=== PATIENT | female | born 1995 | race Caucasian/White ===

== ENCOUNTER 2020-09-21 13:07 | Emergency (ER) | payer SELFPAY ==
[2020-09-21 13:42] VITALS: BP 113/75; PULSE 83; RESP 18; TEMP 36.9; O2SAT 98; BMI 25.5
[2020-09-21 14:58] VITALS: BP 108/61; PULSE 81; RESP 15; O2SAT 99
--- NOTE | 2020-09-21 15:00 | USR_ITS ---
PROCEDURE INFORMATION: Exam: US Abdomen Complete Exam date and time: 09/21/2020 3:00 PM Age: 25 years old Clinical indication: Other: Abdominal distension, history of hep c; Additional info: Abdominal distension, h/o hep c, order clarified with Dr rebolledo TECHNIQUE: Imaging protocol: Real-time ultrasound of the abdomen with image documentation. COMPARISON: No relevant prior studies available. FINDINGS: Liver: No liver mass. No liver enlargement. Unremarkable parenchyma echotexture. Gallbladder: Contracted gallbladder. No focal gallstones. Common bile duct: Common bile duct 5 mm diameter. Negative for intrahepatic biliary dilation. Pancreas: Normal pancreas. Right kidney: Normal. No mass. No hydronephrosis. Left kidney: Normal. No mass. No hydronephrosis. Spleen: Negative for splenomegaly. Aorta: Normal diameter of abdominal aorta. Inferior vena cava: IVC is patent with normal diameter. Intraperitoneal space: No abdominal fluid collection. US/US abdomen complete* [id number] IMPRESSION: No acute abdominal findings.
[2020-09-21 15:46] LABS: Basophils % 0.4 %; Eosinophils # 0.2 10^3/uL (0.0-0.8); Eosinophils % 4.4 %; Hematocrit 38.7 % (37.0-47.0); Hemoglobin 12.9 g/dL (11.5-15.3); Lymphocytes # 1.7 10^3/uL (0.8-4.8); Lymphocytes % 34.6 %; Mean Corpuscular HGB Conc 33.3 g/dL (30.0-36.0); Mean Corpuscular Hemoglobin 31.5 pg (28.0-34.0); Mean Corpuscular Volume 94.4 fL (81-99); Mean Platelet Volume 9.9 fL (7.4-10.4); Monocytes # 0.5 10^3/uL (0.2-0.9); Monocytes % 9.1 %; Neutrophils # 2.55 10^3/uL (1.8-7.7); Neutrophils % 51.3 %; Nucleated Red Blood Cells % 0 %; Platelet Count 234 10^3/cmm (130-400)
--- NOTE | 2020-09-21 15:49 | ED_ITS ---
HPI - Abdominal Pain General: Chief Complaint: Abdominal Pain Stated Complaint: HEP C COMPLICATIONS Time Seen by Provider: 09/21/20 14:35 Source: patient Mode of arrival: ambulatory Limitations: no limitations History of Present Illness: HPI narrative: Patient is a 25-year-old female with a history of hep C who is yet to be treated for this as she is 3 out of 6 months sober. She is required to be 6-month sober before she gets treatment. She states over the last 2 weeks she has noticed that she has gained about 20 pounds, her abdomen is distended and she has bilateral pedal edema. Her aunt is suggested that someone they know had similar symptoms when he was going into liver failure. The patient is therefore here to be evaluated for this. MD elicited complaint: abdominal pain (more of a discomfort than pain) Onset (ago): week(s) (2) Pain Consistency: constant Location: Diffuse Severity: mild Quality: dull Radiation: none Migration to: no migration Exacerbating factors: nothing Relieving factors: nothing Associated Symptoms: Denies anorexia, belching, bloating, change in bowel habits, change in stool character, chills, coffee ground emesis, constipation, GI cramping, diarrhea, dyspepsia, dysuria, excessive flatus, fever(s), heart burn, hematochezia, hematuria, hematemesis, fecal incontinence, loose stools, melena, nausea, poor appetite, syncope and vomiting Review of Systems General: Reports: 10 or more systems reviewed and unremarkable except in HPI and below Const: Denies: fever(s) or chills Card: Denies: syncope GI: Denies: nausea, vomiting, hematemesis, coffee ground emesis, heartburn, diarrhea, constipation, bloating, GI cramping, belching, excessive flatus, fecal incontinence, change in bowel habits, change in stool character, hematochezia or melena : Denies: dysuria or hematuria Physical Exam Const: COMMON NORMALS: no acute distress, average body habitus, patient oriented x3, no limitations, healthy appearing, alert and well nourished HENMT: COMMON NORMALS: normocephalic, atraumatic and moist oral mucous membranes HEAD & SCALP: normocephalic and atraumatic Neck/C-Spine: COMMON NORMALS: no meningeal signs and no JVD Resp: COMMON NORMALS: normal respiratory effort, No retractions, No use of accessory muscles, clear to auscultation bilaterally and percussion normal AUSCULTATION: clear to auscultation bilaterally PERCUSSION: percussion normal Cardio: COMMON NORMALS: no JVD, regular rate, regular rhythm, S1 normal heart sound present, S2 normal heart sound present, No gallops present (Cardio), No clicks present (Cardio), No murmurs present (Cardio), No rub (Cardio) and Peripheral pulses 2+ throughout RATE: regular rate RHYTHM: regular rhythm HEART SOUNDS: S1 normal heart sound present and S2 normal heart sound present PERIPHERAL PULSES: Peripheral pulses 2+ throughout GI: COMMON NORMALS: Soft to palpation, non-tender, No hepatosplenomegaly present, no masses and no bruits INSPECTION: Yes abdominal distension and No Fluid wave present PALPATION: Yes Soft to palpation and Yes No hepatosplenomegaly present PERCUSSION: no dullness to percussion and no fluid wave Extremity: COMMON NORMALS: normal to inspection, full ROM, capillary refill normal, no calf tenderness and no pedal edema Neuro: COMMON NORMALS: patient oriented x3 SENSORIUM/ORIENTATION: Yes alert MENINGEAL SIGNS: Yes no meningeal signs Skin: COMMON NORMALS: no rashes or lesions noted, no wounds, turgor normal, no jaundice, no petechiae and no mottling GENERAL SKIN EXAM: no rashes or lesions noted and turgor normal Course Reevaluation(s): Reevaluation #1: Discussed her lab and imaging findings with her. Unremarkable. Liver enzymes normal. PT/INR normal. Liver function appears to be good. No ascites on ultrasound. I do not think her distention is secondary to ascites. She she has a urinary tract infection and will be discharged home on an oral antibiotic. She will follow-up with her primary care provider. She voiced understanding and is in agreement with the plan. Time: 16:50 Vital Signs: Vital signs: Vital Signs Temperature 98.4 F 09/21/20 13:42 Pulse Rate 81 09/21/20 14:58 Respiratory Rate 15 09/21/20 14:58 Blood Pressure 108/61 09/21/20 14:58 Pulse Oximetry 99 09/21/20 14:58 MDM - Abdominal Pain MDM Narrative: Medical decision making narrative: 25-year-old female with a history of hepatitis C who presented emergency department with a 2-week history of abdominal distention. She was concerned that she may have ascites and so came in here to be evaluated. Evaluation in the emergency department is unremarkable other than a urinary tract infection. She is discharged home with a prescription for Augmentin. Liver enzymes normal. She is to follow-up with her primary care provider. Medical Records: Attestation: I reviewed the patient's medical records. Lab Data: Attestation: I reviewed the patient's lab results. Labs: Lab Results 09/21/20 09/21/20 09/21/20 Range/Units 15:25 15:25 15:25 WBC (4.0-10.0) 10^3/ uL RBC (4.1-5.3) 10^6/u L Hgb (11.5-15.3) g/dL Hct (37.0-47.0) % MCV (81-99) fL MCH (28.0-34.0) pg MCHC (30.0-36.0) g/dL RDW (12.1-15.1) % Plt Count (130-400) 10^3/c mm MPV (7.4-10.4) fL Neut % (Auto) % Lymph % (Auto) % [place] % (Auto) % Eos % (Auto) % Baso % (Auto) % Neut # (Auto) (1.8-7.7) 10^3/u L Lymph # (Auto) (0.8-4.8) 10^3/u L [place] # (Auto) (0.2-0.9) 10^3/u L Eos # (Auto) (0.0-0.8) 10^3/u L Baso # (Auto) (0.0-0.1) 10^3/u L Nucleated RBC % (a uto) % Nucleated RBCs # /100WBC PT (12.1-14.9) SECO NDS INR (0.8-1.2) Sodium (136-145) mmol/L Potassium (3.5-5.1) mmol/L Chloride (98-107) mmol/L Carbon Dioxide (22-29) mmol/L Anion Gap (5-19) BUN (6-20) mg/dL Creatinine (0.5-0.9) mg/dL GFR Calculation (90-130) mL/min Glucose (65-115) mg/dL Calculated Osmolal ity (285-295) mOsm/k g Lactate (0.5-2.2) mmol/L Calcium (8.5-10.5) mg/dL Total Bilirubin (0.15-1.2) mg/dL AST (0-32) U/L ALT (0-33) U/L Alkaline Phosphata se (35-105) IU/L C-Reactive Protein (0.0-4.9) mg/L Total Protein (6.6-8.7) g/dL Albumin (3.5-5.2) g/dL Globulin (1.3-4.6) g/dL Procalcitonin (0-0.5) ng/mL HCG, Qual Negative (Negative) Urine Color Dark yellow (Yellow) Urine Appearance Hazy A (CLEAR) Urine pH 5 (5-7) Ur Specific Gravit y 1.025 (1.005-1.030) Urine Protein Neg (Negative) Urine Glucose (UA) Norm (Normal) Urine Ketones Negative (Negative) Urine Blood Neg (Negative) Urine Nitrate Negative (Negative) Urine Bilirubin Neg (Negative) Urine Urobilinogen Norm (Negative) mg/dL Ur Leukocyte Zenia ase 1+ H (Negative) Urine RBC None (0-2) /hpf Urine WBC 5-10 H (0-5) /hpf Ur Squamous Epith Cells 5-10 H (0-5) /hpf Amorphous Sediment Not Reportable Urine Bacteria 1+ H (NONE) /hpf Urine Trichomonas None /hpf Urine Opiates Scre en Negative (Negative) ng/mL Ur Barbiturates Sc reen Negative (Negative) ng/mL Ur Phencyclidine S crn Negative (Negative) ng/mL Ur Amphetamines Sc reen Negative (Negative) ng/mL U Benzodiazepines Scrn Negative (Negative) ng/mL Urine Cocaine Scre en Negative (Negative) ng/mL U Marijuana (THC) Screen Negative (Negative) ng/mL 09/21/20 09/21/20 09/21/20 Range/Units 15:40 15:40 15:40 WBC 5.0 (4.0-10.0) 10^3/ uL RBC 4.10 (4.1-5.3) 10^6/u L Hgb 12.9 (11.5-15.3) g/dL Hct 38.7 (37.0-47.0) % MCV 94.4 (81-99) fL MCH 31.5 (28.0-34.0) pg MCHC 33.3 (30.0-36.0) g/dL RDW 13.0 (12.1-15.1) % Plt Count 234 (130-400) 10^3/c mm MPV 9.9 (7.4-10.4) fL Neut % (Auto) 51.3 % Lymph % (Auto) 34.6 % Greenwood % (Auto) 9.1 % Eos % (Auto) 4.4 % Baso % (Auto) 0.4 % Neut # (Auto) 2.55 (1.8-7.7) 10^3/u L Lymph # (Auto) 1.7 (0.8-4.8) 10^3/u L Greenwood # (Auto) 0.5 (0.2-0.9) 10^3/u L Eos # (Auto) 0.2 (0.0-0.8) 10^3/u L Baso # (Auto) 0.0 (0.0-0.1) 10^3/u L Nucleated RBC % (a uto) 0 % Nucleated RBCs # 0.0 /100WBC PT (12.1-14.9) SECO NDS INR (0.8-1.2) Sodium 138 (136-145) mmol/L Potassium 4.2 (3.5-5.1) mmol/L Chloride 104 (98-107) mmol/L Carbon Dioxide 28 (22-29) mmol/L Anion Gap 10.2 (5-19) BUN 9 (6-20) mg/dL Creatinine 0.8 (0.5-0.9) mg/dL GFR Calculation 86.0 L (90-130) mL/min Glucose 97 (65-115) mg/dL Calculated Osmolal ity 285 (285-295) mOsm/k g Lactate 0.9 (0.5-2.2) mmol/L Calcium 8.8 (8.5-10.5) mg/dL Total Bilirubin 0.2 (0.15-1.2) mg/dL AST 18 (0-32) U/L ALT 16 (0-33) U/L Alkaline Phosphata se 96 (35-105) IU/L C-Reactive Protein 2.7 (0.0-4.9) mg/L Total Protein 6.7 (6.6-8.7) g/dL Albumin 4.3 (3.5-5.2) g/dL Globulin 2.4 (1.3-4.6) g/dL Procalcitonin 0.02 (0-0.5) ng/mL HCG, Qual (Negative) Urine Color (Yellow) Urine Appearance (CLEAR) Urine pH (5-7) Ur Specific Gravit y (1.005-1.030) Urine Protein (Negative) Urine Glucose (UA) (Normal) Urine Ketones (Negative) Urine Blood (Negative) Urine Nitrate (Negative) Urine Bilirubin (Negative) Urine Urobilinogen (Negative) mg/dL Ur Leukocyte Zenia ase (Negative) Urine RBC (0-2) /hpf Urine WBC (0-5) /hpf Ur Squamous Epith Cells (0-5) /hpf Amorphous Sediment Urine Bacteria (NONE) /hpf Urine Trichomonas /hpf Urine Opiates Scre en (Negative) ng/mL Ur Barbiturates Sc reen (Negative) ng/mL Ur Phencyclidine S crn (Negative) ng/mL Ur Amphetamines Sc reen (Negative) ng/mL U Benzodiazepines Scrn (Negative) ng/mL Urine Cocaine Scre en (Negative) ng/mL U Marijuana (THC) Screen (Negative) ng/mL 09/21/20 Range/Units 16:00 WBC (4.0-10.0) 10^3/ uL RBC (4.1-5.3) 10^6/u L Hgb (11.5-15.3) g/dL Hct (37.0-47.0) % MCV (81-99) fL MCH (28.0-34.0) pg MCHC (30.0-36.0) g/dL RDW (12.1-15.1) % Plt Count (130-400) 10^3/c mm MPV (7.4-10.4) fL Neut % (Auto) % Lymph % (Auto) % Greenwood % (Auto) % Eos % (Auto) % Baso % (Auto) % Neut # (Auto) (1.8-7.7) 10^3/u L Lymph # (Auto) (0.8-4.8) 10^3/u L Greenwood # (Auto) (0.2-0.9) 10^3/u L Eos # (Auto) (0.0-0.8) 10^3/u L Baso # (Auto) (0.0-0.1) 10^3/u L Nucleated RBC % (a uto) % Nucleated RBCs # /100WBC PT 12.70 (12.1-14.9) SECO NDS INR 0.92 (0.8-1.2) Sodium (136-145) mmol/L Potassium (3.5-5.1) mmol/L Chloride (98-107) mmol/L Carbon Dioxide (22-29) mmol/L Anion Gap (5-19) BUN (6-20) mg/dL Creatinine (0.5-0.9) mg/dL GFR Calculation (90-130) mL/min Glucose (65-115) mg/dL Calculated Osmolal ity (285-295) mOsm/k g Lactate (0.5-2.2) mmol/L Calcium (8.5-10.5) mg/dL Total Bilirubin (0.15-1.2) mg/dL AST (0-32) U/L ALT (0-33) U/L Alkaline Phosphata se (35-105) IU/L C-Reactive Protein (0.0-4.9) mg/L Total Protein (6.6-8.7) g/dL Albumin (3.5-5.2) g/dL Globulin (1.3-4.6) g/dL Procalcitonin (0-0.5) ng/mL HCG, Qual (Negative) Urine Color (Yellow) Urine Appearance (CLEAR) Urine pH (5-7) Ur Specific Gravit y (1.005-1.030) Urine Protein (Negative) Urine Glucose (UA) (Normal) Urine Ketones (Negative) Urine Blood (Negative) Urine Nitrate (Negative) Urine Bilirubin (Negative) Urine Urobilinogen (Negative) mg/dL Ur Leukocyte Zenia ase (Negative) Urine RBC (0-2) /hpf Urine WBC (0-5) /hpf Ur Squamous Epith Cells (0-5) /hpf Amorphous Sediment Urine Bacteria (NONE) /hpf Urine Trichomonas /hpf Urine Opiates Scre en (Negative) ng/mL Ur Barbiturates Sc reen (Negative) ng/mL Ur Phencyclidine S crn (Negative) ng/mL Ur Amphetamines Sc reen (Negative) ng/mL U Benzodiazepines Scrn (Negative) ng/mL Urine Cocaine Scre en (Negative) ng/mL U Marijuana (THC) Screen (Negative) ng/mL Imaging Data ^: US: Attestation: I personally reviewed and interpreted this imaging study as follows: Radiologist's impression: [facility] [id number] [place], [place] [address]Jvzgditkpt ReportSigned Patient: Marta Moyer #: [id number]: 1995Acct#:[id number]/Sex: 25 / FADM Date: 09/21/20Loc: ERRoom/Bed:Attending Dr: Ordering Provider/Ordering MD: Sarah Rebol[place]o [place] [facility] [place] of Service: 09/21/20 Procedure(s): US abdomen complete* [id number] Accession Number(s): [id number] Report Number: [id number] PROCEDURE INFORMATION: Exam: US Abdomen Complete Exam date and time: 09/21/2020 3:00 PM Age: 25 years old Clinical indication: Other: Abdominal distension, history of hep c; Additional info: Abdominal distension, h/o hep c, order clarified with Dr rebolledo TECHNIQUE: Imaging protocol: Real-time ultrasound of the abdomen with image documentation. COMPARISON: No relevant prior studies available. FINDINGS: Liver: No liver mass. No liver enlargement. Unremarkable parenchyma echotexture. Gallbladder: Contracted gallbladder. No focal gallstones. Common bile duct: Common bile duct 5 mm diameter. Negative for intrahepatic biliary dilation. Pancreas: Normal pancreas. Right kidney: Normal. No mass. No hydronephrosis. Left kidney: Normal. No mass. No hydronephrosis. Spleen: Negative for splenomegaly. Aorta: Normal diameter of abdominal aorta. Inferior vena cava: IVC is patent with normal diameter. Intraperitoneal space: No abdominal fluid collection. US/US abdomen complete* [id number] IMPRESSION: No acute abdominal findings. Dictated By:Andrey Dailey By:Andrey Dailey Date/Time:09/21/20 1723DD/ 1722 Discharge Plan Discharge Patient Disposition: Home Clinical Impression: UTI (urinary tract infection) Qualifiers: Urinary tract infection type: acute cystitis Hematuria presence: without hematuria Qualified Code(s): N30.00 - Acute cystitis without hematuria Condition: Stable Prescriptions: New Augmentin 500-125 mg tablet 1 tab PO BID Qty: 10 RF: 0 Discharge Orders: Discharge ED (Routine); Ordered 09/21/20 Ordered By: Sarah Rebolledo Discharge Diet: Usual diet Discharge Activity: Increase activity as tolerated Patient Instructions: Urinary Tract Infection in Women (ED) Activity Restrictions/Additional Instructions: Return for any new or worsening symptoms. Follow-up with your primary care provider within 3 days. Take plenty of fluids to keep well-hydrated. Take the antibiotic as prescribed. 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
[2020-09-21 16:04] LABS: HCG Qualitative Urine. Negative (Negative)
[2020-09-21 16:08] LABS: Amphetamines Screen Urine Negative (Negative); Barbiturates Screen Urine Negative (Negative); Benzodiazepines Screen Urine Negative (Negative); Cocaine Screen Urine Negative (Negative); Opiate Screen Urine Negative (Negative); PCP Screen Urine Negative (Negative); THC Screen Urine Negative (Negative)
[2020-09-21 16:10] LABS: Add Urine Microscopic? YES; Bilirubin Urine Neg (Negative); Blood Urine Neg (Negative); Glucose Urine UA Norm (Normal); Ketones Urine Negative (Negative); Leukocyte Esterase Urine 1+ (Negative); Nitrate Urine Negative (Negative); Protein Urine Neg (Negative); Specific Gravity, Urine 1.025 (1.005-1.030); Urine Appearance Hazy (CLEAR); Urine Color Dark Yellow (Yellow); Urobilinogen Urine Norm (Negative); pH Urine 5 (5-7)
[2020-09-21 16:11] LABS: Add Urine Culture? No; Bacteria Urine 1+ /hpf
[2020-09-21 16:13] LABS: Lactate (Lactic Acid level) 0.9 mmol/L (0.5-2.2)
[2020-09-21 16:14] LABS: Alanine Aminotransferase 16 U/L (0-33); Albumin Level 4.3 g/dL (3.5-5.2); Alkaline Phosphatase 96 IU/L (35-105); Anion Gap 10.2 (5-19); Aspartate Amino Transferase 18 U/L (0-32); Blood Urea Nitrogen 9 mg/dL (6-20); C Reactive Protein 2.7 mg/L (0.0-4.9); Calcium 8.8 mg/dL (8.5-10.5); Carbon Dioxide 28 mmol/L (22-29); Chloride 104 mmol/L (98-107); Globulin 2.4 g/dL (1.3-4.6); Glucose 97 mg/dL (65-115); Osmolality Calculated 285 mOsm/kg (285-295); Potassium 4.2 mmol/L (3.5-5.1); Sodium 138 mmol/L (136-145); Total Bilirubin 0.2 mg/dL (0.15-1.2); Total Protein 6.7 g/dL (6.6-8.7)
[2020-09-21 16:16] LABS: INR 0.92 (0.8-1.2)
[2020-09-21 16:19] LABS: Procalcitonin 0.02 ng/mL (0-0.5)
== END 2020-09-21 16:59 | disposition home or self-care (01) ==
PROVIDERS: Emergency Provider Family Medicine
DX: N30.00 Acute cystitis without hematuria (principal); Z86.19 Personal history of other infectious and parasitic diseases
CPT/HCPCS: 76700; 80053; 80306; 81001; 81025; 83605; 84145; 85025; 85610; 86140; 99283

== ENCOUNTER → 2020-12-01 15:27 | Outpatient (BNVA) | payer MEDICAID, SELFPAY | PROVIDERS: Visit Provider Internal Medicine | DX: R76.8 Other specified abnormal immunological findings in serum (principal); B19.20 Unspecified viral hepatitis C without hepatic coma; B18.2 Chronic viral hepatitis C | CPT/HCPCS: 80053; 87522; 87902 ==

== ENCOUNTER 2021-08-28 09:27 | Outpatient (CLI) | payer MEDICAID, SELFPAY ==
--- NOTE | 2021-08-27 | XR_ITS ---
WS: [id number] Exam: XR abdomen min 2V [id number] Date/Time of Exam: 08/27/2021 12:00 AM Reason For Exam: ABDOMINAL DISTENTION/BLOATING No bowel obstruction or free air. No sign of organ enlargement. Regional bony structures appear qasim l. XR/XR abdomen min 2V [id number] IMPRESSION: 1. Normal abdomen.
--- NOTE | 2021-08-27 | XR_ITS ---
WS: [id number] Exam: XR chest 2V* [id number] Date/Time of Exam: 08/27/2021 12:00 AM Reason For Exam: SHORTNESS OF BREATH Findings: The lungs are clear and fully expanded. Costophrenic angles are sharp. No infiltrates. Bronchovascula r relief appears normal. Cardiac silhouette is unremarkable. Bony elements are intact. XR/XR chest 2V* [id number] IMPRESSION: Unremarkable chest radiograph.
== END 2021-08-28 09:28 | disposition home or self-care (01) ==
LOC: RADOUTREAD 10:01
PROVIDERS: Visit Provider Nurse Practitioner Family
DX: R06.02 Shortness of breath (principal); R14.0 Abdominal distension (gaseous)
CPT/HCPCS: 71046; 74019

== ENCOUNTER → 2023-10-17 10:26 | Outpatient (BNVA) | payer OTHER, MEDICAID, SELFPAY | PROVIDERS: Visit Provider Obstetrics & Gynecology | DX: Z87.898 Personal history of other specified conditions (principal) | CPT/HCPCS: 76830 ==

== ENCOUNTER 2023-11-24 09:15 | Outpatient (CLI) | payer OTHER, MEDICAID, SELFPAY ==
--- NOTE | 2023-11-24 09:18 | CT_ITS ---
WS: [id number] CT chest w con* [id number] HISTORY: LUNG NODULE TECHNIQUE: Axial imaging performed through the thorax. Coronal and sagittal reformats are submitted. All CT scans at [facility] use at least one of these dose optimization techniques: automated exposure control; mA and/or kV adjustment per patient size (includes targeted exams where dose is mat ched to clinical indication); or iterative reconstruction. CONTRAST: Omnipaque 350; 100 mL IV. DLP: 377.57 mGy.cm COMPARISON: None available. There is significant breathing motion artifact during this examination. Greatest limitation at the destin ng bases. Lungs and central airway: Low lung volumes and motion artifact from breathing. There is hazy attenuat ion throughout both lungs which may be related to respiratory bronchiolitis associated with smoking o r other breathing artifact. There is a well-circumscribed nodule at the LEFT lung base measuring 1.2 x 1.0 cm. There is a tiny pleural nodule at the RIGHT lung base measuring 0.5 cm. There are few granu lomata. Pleura: Normal. No pleural effusion. Heart and pericardium: Heart appears slightly prominent. No pericardial effusion. Mediastinum and meenu: No mediastinum or hilar adenopathy. Vessels: Normal size aortic and pulmonary artery. No coronary artery calcifications. Chest wall and lower neck: No soft tissue masses. Upper abdomen: Small hiatal hernia. No adrenal mass. Osseous structures: No destructive process. CT/CT chest w con* [id number] IMPRESSION: 1. Quality of this examination is compromised by poor inspiration and breathin g motion artifact. 2. Bilateral lower lobe noncalcified pulmonary nodules. The largest at the LEF T lung base measures 1.2 x 1.0 cm. No prior studies for comparison to evaluate for interval change. 3. No mediastinal adenopathy.
[2023-11-24] MEDS: iohexol 350 mg/mL 500 mL Btl (per mL) IV (10:24)
== END 2023-11-24 09:16 | disposition home or self-care (01) ==
LOC: RAD 09:16
PROVIDERS: PCP Nurse Practitioner Family; Visit Provider Nurse Practitioner Family
DX: R91.8 Other nonspecific abnormal finding of lung field (principal); K44.9 Diaphragmatic hernia without obstruction or gangrene
CPT/HCPCS: 71260; Q9967

== ENCOUNTER 2024-06-27 14:04 | Outpatient (CLI) | payer OTHER, MEDICAID, SELFPAY ==
--- NOTE | 2024-06-27 14:12 | CTR_ITS ---
PROCEDURE INFORMATION: Exam: CT Chest With Contrast; Diagnostic Exam date and time: 06/27/2024 2:33 PM Age: 28 years old Clinical indication: Abnormal findings; Abnormal radiologic exam of lung or chest; Follow up lung nodules; Additional info: Multiple lung nodules TECHNIQUE: Imaging protocol: Diagnostic computed tomography of the chest with contrast. Radiation optimization: All CT scans at this facility use at least one of these dose optimization techniques: automated exposure control; mA and/or kV adjustment per patient size (includes targeted exams where dose is matched to clinical indication); or iterative reconstruction. Contrast material: OMNIPAQUE 350; Contrast volume: 100 ml; Contrast route: INTRAVENOUS (IV); COMPARISON: CT chest w con* [id number] 11/24/2023 9:45 AM RADIATION DOSE METRICS: Total DLP (mGy-cm): 351.34 FINDINGS: Lungs: Enlarging solid, rounded nodule in the lung base 1.5 x 1.4 cm (previously measuring 1.1 x 1.1 cm). No consolidation. No additional nodules/masses. Pleural spaces: Unremarkable. No pneumothorax. No pleural effusion. Heart: Unremarkable. No cardiomegaly. No pericardial effusion. Lymph nodes: Unremarkable. No enlarged lymph nodes. Vasculature: Unremarkable. No aortic aneurysm. Bones/joints: Unremarkable. No acute fracture. Soft tissues: Unremarkable. CT/CT chest w con* [id number] IMPRESSION: Enlarging 1.5 cm nodule in the right lung base. Would recommend PET-CT or biopsy for further evaluation.
[2024-06-27] MEDS: iohexol 350 mg/mL 500 mL Btl (per mL) IV (14:37)
== END 2024-06-27 14:05 | disposition home or self-care (01) ==
LOC: RAD 14:07
PROVIDERS: PCP Nurse Practitioner Family; Visit Provider Nurse Practitioner Family
DX: R91.1 Solitary pulmonary nodule (principal)
CPT/HCPCS: 71260

== ENCOUNTER 2024-08-03 07:52 | Outpatient (CLI) | payer OTHER, SELFPAY ==
--- NOTE | 2024-08-03 08:15 | PETR_ITS ---
PROCEDURE INFORMATION: Exam: PET/CT Whole Body Exam date and time: 08/03/2024 8:58 AM Age: 29 years old Clinical indication: Abnormal findings; Enlarging 1.5 cm nodule in the right lung base; Additional info: Lung nodule LABS AND CLINICAL REPORTS: Glucose: 98 mg/dl Treatment strategy for malignancy (PET staging): Initial Staging (PI) TECHNIQUE: Imaging protocol: Following at least four-hour fasting and following the injection of radiopharmaceutical, low dose CT images were obtained. Then, PET images were obtained. Attenuation corrected images were constructed using the CT scan. Fused images of PET and CT were reviewed. The standardized uptake values (SUV) reported below are maximum values within a region of interest, expressed in gm/ml. Exam includes the whole body. SUV normalization method: BodyWeight Radiopharmaceutical: 11.24 mCi F-18 FDG (Fluorodeoxyglucose), IV. Time of imaging post radiopharmaceutical administration: 45 minutes Injection site: left ac COMPARISON: CT chest w con* [id number] 06/27/2024 2:33 PM FINDINGS: Brain: Visualized brain has normal physiologic uptake. Pharynx: Bilateral palatine tonsillar uptake demonstrates an SUV max of 9.0 on the right and 9.9 on the left and is likely inflammatory or infectious in etiology, without evidence of a focal correlating lesion on the CT images. Larynx: No abnormal uptake. Lungs, pleura and trachea: A similar solid posterior left lower lobe 1.6 x 1.[address] series 202, image 461 is noted, SUV max 2.7. Heart: Normal physiologic uptake. Mediastinal space: No abnormal uptake. Liver: No abnormal uptake. Gallbladder and biliary ducts: No abnormal uptake. Pancreas: No abnormal uptake. Spleen: No abnormal uptake. Adrenal glands: No abnormal uptake. Kidneys and ureters: Normal physiologic uptake. Stomach and bowel: Uptake in the proximal to mid stomach demonstrates an SUV max 5.4 on PET image [address] image 434, without definite wall thickening or mass. This uptake is likely physiologic or inflammatory. Assessment of the wall of the stomach is limited by incomplete distension. Reproductive: A non radiotracer avid low-density 2.2 cm rounded structure in the left ovary on series 202, image 340 is present without elevated uptake. Vasculature: No abnormal uptake. Lymph nodes: No abnormal uptake. No lymphadenopathy in the head, neck, chest, abdomen, pelvis, and extremities. Skeleton: No abnormal uptake in the visualized axial and appendicular skeleton. Degenerative changes in the spine are noted. Benign-appearing symmetric sclerotic changes in the medial aspect of the bilateral iliac bones to a lesser extent in the adjacent sacrum and noted at the sacroiliac joints. Soft tissues: No abnormal uptake in the visualized head, neck, chest, abdomen, pelvis, and extremities. METRICS: Mediastinal blood pool: SUV max 2.2, SUV mean 1.8 Liver uptake: SUV max 2.8, SUV mean 2.4 PET/PET WB melanoma INITIAL [id number] IMPRESSION: 1. A left lower lobe pulmonary nodule is identified. A low-level of uptake is identified in the nodule, which can be associated with benign atypical infectious involvement. A malignant etiology is not entirely excluded. 2. Bilateral palatine tonsillar uptake is noted, likely inflammatory or infectious in etiology. A malignant etiology is less likely. 3. A left ovarian cystic structure is noted with benign CT imaging features and lack of uptake favoring a benign etiology. 4. Sclerotic changes at the sacroiliac joints is greatest in the medial aspect of the iliac bones and appears symmetric. These findings appear benign and can be associated with osteitis condensans ilii. 5. Additional nonurgent findings as detailed above.
== END 2024-08-03 07:53 | disposition home or self-care (01) ==
PROVIDERS: PCP Nurse Practitioner Family; Visit Provider Nurse Practitioner Family
DX: R91.1 Solitary pulmonary nodule (principal); R93.89 Abnormal findings on diagnostic imaging of other specified body structures; M47.9 Spondylosis, unspecified
CPT/HCPCS: 78816; A9552